=== PATIENT | male | born 1950 | race Caucasian/White ===

== ENCOUNTER 2025-02-24 11:00 | Day surgery (SDC) | payer OTHER ==
[~2025-02-24] VITALS: Ht 167.6 cm; Wt 68.3 kg
[2025-02-24] MEDS ORDERED: ZOLOFT50 MG (11:17)
[2025-02-24] MEDS ORDERED: TAMSULOSIN HCL0.4 M1 (11:17)
[2025-02-24] MEDS ORDERED: ESCI10 (11:19)
[2025-02-24] MEDS ORDERED: FISH OIL 1,0001 EA10 (11:21)
[2025-02-24] MEDS ORDERED: Glycopyrrolate 0.2 MG/ML 1MLVIAL ONE ×2 (13:23→13:43)
[2025-02-24] MEDS ORDERED: Ondansetron HCl 2 MG / ML 2ML Vial ONE (13:43)
--- NOTE | 2025-02-24 17:14 | NUR ---
02/24/25 1714 KATHRYN UMAÑA SEE MAR IN OR FOR NOTES DETAILING MEDS GIVEN AND REASON. LATE ENTRY: PT GIVEN ROBINOL DUE TO BRADYCARDIA/ SECREATIONS CAUSING LARYNGOSPASM 2% 100MG LIDOCAINE GIVEN TO BREAK SPASM PER ORDERS ZOFRAN 4MG GIVEN FOR VOMITTING CHARGE CALLED FOR HELP AND ANESTHESIA TO ROOM BY SEDATING RN
== END 2025-02-24 14:12 | disposition home or self-care (01) ==
LOC: ORSCSDS 11:00 → ORD 14:30 → ORSCSDS 15:00
PROVIDERS: Family Medicine
PROC: 0DBP8ZX Excision of Rectum, Via Natural or Artificial Opening Endoscopic, Diagnostic (ICD-10-PCS; principal; 2025-02-24 12:15)
DX: Z12.11 Encounter for screening for malignant neoplasm of colon (principal); K62.1 Rectal polyp; Z86.0101 Personal history of adenomatous and serrated colon polyps; I45.10 Unspecified right bundle-branch block; F41.8 Other specified anxiety disorders; E78.00 Pure hypercholesterolemia, unspecified; E78.5 Hyperlipidemia, unspecified; G25.0 Essential tremor; Z79.899 Other long term (current) drug therapy
CPT/HCPCS: 88305; 93005; 93010; J2405; J2704; J7120